=== PATIENT | male | born 1995 | race Caucasian/White ===

== ENCOUNTER 2020-09-23 08:02 | Emergency (ER) | payer OTHER ==
[~2020-09-23] VITALS: Ht 185.4 cm; Wt 99.8 kg
[2020-09-23] MEDS ORDERED: CEPHALEXIN500 MG PO (09:42)
[2020-09-23 10:17] VITALS: BP 133/74
== END 2020-09-23 10:19 | disposition home or self-care (01) ==
LOC: M.ERS 08:02
DX: S51.811A Laceration without foreign body of right forearm, initial encounter (principal); W26.8XXA Contact with other sharp object(s), not elsewhere classified, initial encounter; Y93.89 Activity, other specified; Y92.89 Other specified places as the place of occurrence of the external cause; Y99.8 Other external cause status